=== PATIENT | male | born 1990 | race Caucasian/White ===

== ENCOUNTER → 2020-08-31 | Outpatient (CLI) | payer OTHER ==
[2020-09-01 00:45] LABS: African American GFR (CKD) 134.2 (60.0-200.0); Non-African American GFR(CKD) 115.8 (60.0-200.0)
== END | disposition home or self-care (01) ==
LOC: LABWHC1 11:38
PROVIDERS: ATTEND Ophthalmology
DX: H16.041 Marginal corneal ulcer, right eye (principal)
CPT/HCPCS: 36415; 82565; 84520